=== PATIENT | male | born 1975 | race Caucasian/White ===

== ENCOUNTER 2016-09-29 09:23 | Emergency (ER) | payer OTHER ==
[~2016-09-29] VITALS: Ht 157.5 cm; Wt 78.0 kg
[~2016-09-29 09:23] MED LIST: ACET500C5 PO; ALBU8.5H5 INH; GUAI-637 PO; PSEU120T11 PO; ZOF8 PO
[2016-09-29 09:26] VITALS: Ht 157.5 cm; Wt 78.0 kg
[2016-09-29] MEDS ORDERED: predniSONE 20 MG TAB PO STA (09:52)
[2016-09-29] MEDS ORDERED: ALBUTEROL 0.5% (NEB) 2.5 MG/0.5 ML AMP NEB STA (09:52)
[2016-09-29] MEDS ORDERED: IPRATROPIUM (NEB) 0.5 MG/2.5 ML AMP NEB STA (09:52)
--- NOTE | 2016-09-29 10:00 | ERD ---
ER Documentation Chief Complaint Date/Time DATE: 09/29/16 TIME: 09:58 Chief Complaint cough x 1 week HPI This is a 41-year-old male with a history of bronchitis who presents to the emergency room for evaluation of a cough for 1 weeks duration. He states that it feels like his previous bronchitis. He does state that he ran out of his albuterol inhaler a few months ago. He denies any fevers associated with this and states he has a dry cough. The patient denies any chest pain or palpitations currently. Relieving factors are his albuterol, and aggravating factors are at nighttime when he lays flat. ROS All systems reviewed and are negative except as per history of present illness. Medications Home Meds Active Scripts Ondansetron Hcl* (Zofran* ODT) 8 mg -ODT Tab.disper, 8 MG PO Q6 Y for NAUSEA AND /OR VOMITING, #10 TAB Prov:SULLY SMILEY MD 06/18/15 Acetaminophen* (Tylophen*) 500 Mg Capsule, 1 CAP PO Q6H Y for PAIN AND OR ELEVATED TEMP, #16 CAP Prov:SULLY SIMLEY MD 06/18/15 Albuterol Sulfate* (Albuterol Sulfate* HFA) 8.5 Gm Hfa.aer.ad, 1-2 PUFF INH Q4 Y for SHORTNESS OF BREATH, #1 EA Prov:TYLOR JETT PA-C 07/20/14 Guaifenesin (Guaifenesin) 100 Mg/5 Ml Liquid, 1-2 TSP PO Q4H Y for COUGH for 3 Days, ML Prov:TYLOR JETT PA-C 07/20/14 Pseudoephedrine Hcl (Sudafe 12-Hour) 120 Mg Tablet.er, 120 MG PO BID Y for CONGESTION for 3 Days, TAB.SA Prov:TYLOR JETT PA-C 07/20/14 Allergies Allergies: Coded Allergies: aspirin (Verified Allergy, Severe, FACIAL SWELLING, 06/18/15) PMhx/Soc Medical and Surgical Hx: pt denies Medical Hx, pt denies Surgical Hx History of Surgery: No Anesthesia Reaction: No Hx Neurological Disorder: No Hx Respiratory Disorders: Yes (asthma, bronchitis) Hx Cardiac Disorders: No Hx Psychiatric Problems: No Hx Miscellaneous Medical Probl: No Hx Alcohol Use: Yes (socially) Hx Substance Use: No Hx Tobacco Use: No Smoking Status: Never smoker Physical Exam Vitals Vital Signs Date Time Temp Pulse Resp B/P Pulse Ox O2 Delivery O2 Flow Rate FiO2 09/29/16 09:26 98.1 60 20 138/68 99 Physical Exam Const: No acute distress Head: Atraumatic Eyes: Normal Conjunctiva ENT: Normal External Ears, Nose and Mouth. Neck: Full range of motion..~ No meningismus. Resp: Wheezing bilaterally Cardio: Regular rate and rhythm, no murmurs Abd: Soft, non tender, non distended. Normal bowel sounds Skin: No petechiae or rashes Back: No midline or flank tenderness Ext: No cyanosis, or edema Neur: Awake and alert Psych: Normal Mood and Affect Results 24 hrs Current Medications Medications (Trade) Dose Ordered Sig/Gama Route PRN Reason Start Time Stop Time Status Last Admin Dose Admin Albuterol (Proventil 0.5% (Neb)) 10 mg ONCE STAT NEB 09/29/16 09:52 09/29/16 09:53 Ipratropium [place] (Atrovent 0.02% (Neb)) 1 mg ONCE STAT NEB 09/29/16 09:52 09/29/16 09:53 Prednisone (Prednisone) 60 mg ONCE STAT PO 09/29/16 09:52 09/29/16 09:53 Procedures/MDM This 41-year-old male presents to the ER for evaluation of wheezing and shortness of breath. When I evaluated this patient he was nontoxic appearing, hemodynamically stable, not hypoxic, and in no respiratory distress. The patient did have some mild wheezing bilaterally. The patient was given a breathing treatment with albuterol and Atrovent. He was given prednisone and will be discharged home with a prescription for Adacel, albuterol, and 5 day course of Z-Martin for acute bronchitis Departure Diagnosis: Primary Impression: Acute bronchitis Additional Impression: Cough Condition: Stable MELISSA COLON DO Sep 29, 2016 10:00
[2016-09-29] MEDS ORDERED: AZIT250T94 PO (10:01)
[2016-09-29] MEDS ORDERED: PRED20TA PO (10:01)
[2016-09-29] MEDS ORDERED: ALBU8.5H3 INH (10:01)
== END 2016-09-29 11:37 | disposition home or self-care (01) ==
LOC: FTE 09:23
DX: J20.9 Acute bronchitis, unspecified (principal); J45.909 Unspecified asthma, uncomplicated
CPT/HCPCS: 94644; J7512; Z7502; Z7610

== ENCOUNTER 2018-01-21 12:48 | Emergency (ER) | END 2018-01-21 14:11 | disposition home or self-care (01) ==